=== PATIENT | male | born 1955 | race Caucasian/White ===

== ENCOUNTER 2020-07-02 00:59 | Emergency (ER) | payer OTHER ==
[~2020-07-02] VITALS: Ht 182.9 cm; Wt 79.4 kg
[2020-07-02 01:57] LABS: HEMATOCRIT 45.1 % (42.0-52.0); HEMOGLOBIN 15.8 gm/dL (14.0-18.0); MCH 31.3 pg (26.0-34.0); MCV 89.3 fL (80.0-100.0); MPV 6.8 fl. (7.2-11.1); NUCLEATED RBCS 0 /100WBC; PLATELET COUNT* 231 thou/uL (150-400); RBC 5.06 mil/uL (4.50-6.00); RDW-CV 12.6 % (10.5-14.5); WBC 11.7 thou/uL (4.0-11.0)
[2020-07-02 01:59] LABS: CALCIUM 8.7 mg/dL (8.5-10.1); CREATININE 1.1 mg/dL (0.6-1.3); POTASSIUM 3.4 mmol/L (3.5-5.1)
[2020-07-02 02:02] LABS: PROTIME 10.8 Seconds (9.20-11.50)
[2020-07-02 03:10] LABS: ABSOLUTE BASOPHILS 0.1 thou/uL (0.0-0.2); ABSOLUTE LYMPHOCYTES 0.6 thou/uL (0.8-5.3); ABSOLUTE MONOCYTES 0.2 thou/uL (0.0-1.2); ABSOLUTE NEUTROPHILS 10.8 thou/uL (1.6-8.1)
[2020-07-02 03:11] LABS: PLATELET ESTIMATE ADEQUATE
[2020-07-02 04:57] LABS: URINE BILIRUBIN NEGATIVE (Negative); URINE BLOOD NEGATIVE (Negative); URINE CLARITY CLEAR; URINE COLOR YELLOW; URINE GLUCOSE-RANDOM NEGATIVE (Negative); URINE KETONES 1+ (Negative); URINE LEUKOCYTES NEGATIVE (Negative); URINE NITRITE NEGATIVE (Negative); URINE PROTEIN NEGATIVE (Negative); URINE SPECIFIC GRAVITY 1.015 (1.005-1.030); URINE UROBILINOGEN 0.2 E.U./dl (0.2-1.0)
[2020-07-02 05:20] VITALS: BP 171/82
--- NOTE | 2020-07-02 11:15 | EKG ---
[place] [address] ELECTROCARDIOGRAM REPORT Name: CORTNEY BETH Room: [facility]#: [id number] Admission: 07/02/20 Attend Phys: Discharge: 07/02/20 Date of : 57 Date of Service: 07/02/20 0139 Report #: [id number] THIS REPORT FOR: //name// [facility] ED Test Date: 2020-07-02 Test Time: 01:39:21 Pat Name: CORTNEY BETH Department: Room: Gender: [employer]ice: TOM : 1955 Requested By: Natalie Jay Order Number: [id number] MD: Rick Story Measurements Intervals [place] Rate: 64 P: 66 WI: 162 QRS: -23 QRSD: 120 T: 55 QT: 413 QTc: 426 Interpretive Statements Sinus rhythm Borderline ST elevation, anterior leads No previous ECG available for comparison Electronically Signed On 07-02-2020 11:15:04 [employer] by Rick Story [email or web address] <ELECTRONICALLY SIGNED> By: Rick Story MD, [facility] 07/02/20 1115 0139 0139 Rick Story MD, [facility] /EPI
== END 2020-07-02 05:20 | disposition short-term general hospital (02) ==
LOC: M.ERS 00:59
PROVIDERS: Emergency Medicine
DX: I60.9 Nontraumatic subarachnoid hemorrhage, unspecified (principal); I10 Essential (primary) hypertension; Z20.822 Contact with and (suspected) exposure to COVID-19